=== PATIENT | female | born 1985 | race Caucasian/White ===

== ENCOUNTER 2020-10-21 00:15 | Emergency (ER) | payer MEDICAID ==
[~2020-10-21] VITALS: Ht 167.6 cm; Wt 110.2 kg
[2020-10-21 00:28] VITALS: BP 140/69
--- NOTE | 2020-10-21 00:36 | NUR ---
PT AMBULATED TO LOBBY TO A/W BED. URINE SPECIMEN PROVIDED
[2020-10-21 02:14] LABS: BASOPHILS # (AUTO) 0.1 K/uL (0.00-0.22); EOSINOPHILS # (AUTO) 0.6 K/uL (0-0.4); EOSINOPHILS % (AUTO) 6.3 % (0.0-4.0); HEMATOCRIT 28.5 % (36-48); HEMOGLOBIN 8.5 g/dL (12.0-16.0); LYMPHOCYTES # (AUTO) 2.9 K/uL (2.5-16.5); LYMPHOCYTES % (AUTO) 29.4 % (20.5-51.1); MEAN CORPUSCULAR HEMOGLOBIN 18 pg (27-31); MEAN CORPUSCULAR HGB CONC 30 g/dL (33-37); MEAN CORPUSCULAR VOLUME 59.3 fL (80-94); MONOCYTES # (AUTO) 0.7 K/uL (0.8-1.0); MONOCYTES % (AUTO) 6.8 % (1.7-9.3); NEUTROPHILS # (AUTO) 5.5 K/uL (1.8-7.7); NEUTROPHILS % (AUTO) 56.5 % (42.2-75.2); PLATELET COUNT (AUTO) 276 K/uL (140-450); RED CELL DISTRIBUTION WIDTH 21.2 % (11.6-13.7); WHITE BLOOD COUNT (AUTO) 9.8 K/uL (4.8-10.8)
[2020-10-21 02:29] LABS: ALBUMIN 3.8 g/dL (3.4-5.0); ANION GAP 12.8 (8-16); CARBON DIOXIDE 26.4 mmol/L (21-32); CREATININE 0.6 mg/dL (0.6-1.3); POTASSIUM 3.2 mmol/L (3.5-5.1); TOTAL BILIRUBIN 0.5 mg/dL (0.0-1.0)
--- NOTE | 2020-10-21 02:57 | NUR ---
35 Y/O FEMALE PATIENT PRESENTS TO ED WITH LT LOWER QUADRANT ABDOMINAL PAIN . PT STATES "I HAVE LT LOWER ABDOMINAL PAIN OF 7/10 AND RADIATES TO MY BACK. ALSO, IT HURTS WHEN I MOVE TO MY SIDE" . DENIES N/V/D; SKIN IS PINK/WARM/DRY; AAOX4 WITH EVEN AND STEADY GAIT; LUNGS CLEAR BL; HR EVEN AND REGULAR; PT DENIES ANY FEVER, CP, SOB, OR COUGH AT THIS TIME; PATIENT STATES PAIN OF 7/10 AT THIS TIME; VSS; PATIENT POSITIONED FOR COMFORT; HOB ELEVATED; BEDRAILS UP X2; BED DOWN. ER MD MADE AWARE OF PT STATUS. PMH: GALLBLADDER SURGERY NKA LMP: 10/03/20
--- NOTE | 2020-10-21 04:44 | NUR ---
ULTRASOUND AT BEDSIDE
[2020-10-21] MEDS ORDERED: IBUP-2213 PO (06:55)
[2020-10-21] MEDS ORDERED: BEN10 PO (06:55)
--- NOTE | 2020-10-21 07:15 | NUR ---
GIVEN REPORT TO RYAN GILMORE, FOR CONTINUITY OF CARE
--- NOTE | 2020-10-21 07:17 | NUR ---
REPORT RECEIVED FROM MANDO RAMOS. TRANSFER OF CARE RECEIVED
--- NOTE | 2020-10-21 07:20 | NUR ---
Patient discharged with v/s stable. Written and verbal after care instructions given and explained. Patient alert, oriented and verbalized understanding of instructions. Ambulatory with steady gait. All questions addressed prior to discharge. ID band removed. Patient advised to follow up with PMD. Rx of bentyl and ibuprofen given. Patient educated on indication of medication including possible reaction and side effects. Opportunity to ask questions provided and answered.
[2020-10-21 07:21] VITALS: BP 140/69
== END 2020-10-21 07:20 | disposition home or self-care (01) ==
LOC: MED 00:15
DX: R10.30 Lower abdominal pain, unspecified (principal); R11.0 Nausea; R19.7 Diarrhea, unspecified; Z79.899 Other long term (current) drug therapy
CPT/HCPCS: 36415; 76856; 80053; 81002; 81025; 83690; 85025; 99284